=== PATIENT | male | born 1965 | race Caucasian/White ===

== ENCOUNTER 2017-07-16 00:49 | Outpatient (CLI) | payer SELFPAY | END 2017-07-16 23:59 | disposition home or self-care (01) | LOC: HW VAS 00:49 | DX: Z00.00 Encounter for general adult medical examination without abnormal findings (principal) ==

== ENCOUNTER 2017-08-04 22:30 | Emergency (ER) | payer BC, SELFPAY ==
[~2017-08-04] VITALS: Ht 170.2 cm; Wt 106.6 kg
[2017-08-04] MEDS ORDERED: magnesium 2GM in 50ml NS 50 ML IV ONE (22:40)
[2017-08-04] MEDS ORDERED: normal saline 1000ML IV soln IVB ONE (22:40)
[2017-08-04] MEDS ORDERED: ipratropium/albuterol 3ml nebule NEB ONE (22:40)
[2017-08-04] MEDS ORDERED: methylPREDNISolone sod succ 125mg/2ml vial IV ONE (22:40)
[2017-08-04 23:24] LABS: BASOPHILS % (AUTO) 0.2 % (0-1); EOSINOPHILS # (AUTO) 0.1 X10'3 (0-0.9); HEMATOCRIT 49.1 % (42.0-52.0); HEMOGLOBIN 17.3 g/dl (14.0-17.9); LYMPHOCYTES # (AUTO) 2.5 X10'3 (1.1-4.8); LYMPHOCYTES % (AUTO) 31.9 % (21-51); MEAN CORPUSCULAR HEMOGLOBIN 30.9 PG (27.0-31.0); MEAN CORPUSCULAR HGB CONC 35.2 % (33.0-36.5); MEAN CORPUSCULAR VOLUME 87.9 FL (78-98); MEAN PLATELET VOLUME 8.1 FL (7.4-10.4); MONOCYTES # (AUTO) 0.5 X10'3 (0-0.9); MONOCYTES % (AUTO) 6.2 % (2-12); NEUTROPHILS # (AUTO) 4.8 X10'3 (1.8-7.7); NEUTROPHILS % (AUTO) 60.7 % (42-75); PLATELET COUNT 159 X10'3 (140-440); RED BLOOD COUNT 5.59 X10'6 (4.70-6.10); RED CELL DISTRIBUTION WIDTH 12.7 % (11.5-14.5); WHITE BLOOD COUNT 7.9 X10'3 (4.5-11.0)
[2017-08-04 23:35] LABS: PARTIAL THROMBOPLASTIN TIME 25 SECONDS (22-32); PROTHROMBIN TIME 9.9 SECONDS (9.0-12.0)
[2017-08-04 23:39] LABS: ALANINE AMINOTRANSFERASE 62 U/L (12-78); ALBUMIN 3.8 G/DL (3.4-5.0); ALKALINE PHOSPHATASE 101 IU/L (46-116); ANION GAP 13 (8-16); ASPARTATE AMINO TRANSFERASE 26 U/L (10-37); BILIRUBIN,TOTAL 0.3 MG/DL (0.1-1.0); BLOOD UREA NITROGEN 26 MG/DL (7-18); BUN/CREATININE RATIO 21.5 (5.4-32.0); CHLORIDE 103 MMOL/L (99-107); CREATININE 1.21 MG/DL (0.60-1.10); GLUCOSE 125 MG/DL (70-104); POTASSIUM 3.4 MMOL/L (3.5-5.1); SODIUM 142 MMOL/L (135-145); TOTAL CARBON DIOXIDE 26.1 MMOL/L (24-32); TOTAL PROTEIN 7.6 G/DL (6.4-8.2); eGFR 63 ML/MIN
[2017-08-05] MEDS ORDERED: AZIT250T2 PO (00:11)
[2017-08-05] MEDS ORDERED: PRED-531 PO (00:11)
[2017-08-05] MEDS ORDERED: alb (00:13)
[2017-08-05] MEDS ORDERED: ALB0.5UD IH (00:13)
[2017-08-05 00:37] VITALS: BP 142/89
== END 2017-08-05 00:39 | disposition home or self-care (01) ==
LOC: ER 22:31
DX: J18.9 Pneumonia, unspecified organism (principal); J98.01 Acute bronchospasm
CPT/HCPCS: 36415; 71045; 80053; 83605; 85025; 85610; 85730; 87040; 94640; 94760; 96365; 96366; 96375; 99285; J2930; J3475